=== PATIENT | male | born 1980 | race Caucasian/White ===

== ENCOUNTER 2018-04-25 08:44 | Emergency (ER) | payer OTHER ==
[~2018-04-25] VITALS: Ht 170.2 cm; Wt 59.0 kg
[~2018-04-25 08:44] MED LIST: EXCEDRIN MIGRA1 EAC3 PO; HYDROCODON-ACE1 EAC7 PO; IBUPROFEN600 MG PO; KEFLEX500 MG PO; LEVAQUIN500 MG PO; MOTRIN IB200 MG PO; MOTRIN800 MG PO; NOHOMEMEDS; NORCO 5/3251 TABLET PO; PERCOCET 5/31 TABLET PO; PYRIDIUM200 MG PO; ULTRAM50 MG PO; VIBRAMYCIN100 MG PO
[2018-04-25] MEDS ORDERED: NAPROSYN500 MG PO (10:28)
[2018-04-25] MEDS ORDERED: BACITRACIN-P28.35 GM TP (10:49)
[2018-04-25 11:03] VITALS: BP 138/70
== END 2018-04-25 11:24 | disposition home or self-care (01) ==
LOC: EME 08:44
DX: S93.401A Sprain of unspecified ligament of right ankle, initial encounter (principal); S50.311A Abrasion of right elbow, initial encounter; S50.811A Abrasion of right forearm, initial encounter; V28.0XXA Motorcycle driver injured in noncollision transport accident in nontraffic accident, initial encounter; Z23 Encounter for immunization; Z88.5 Allergy status to narcotic agent
CPT/HCPCS: 73080; 73610; 73630; 99281; 99284